=== PATIENT | male | born 1990 | race Caucasian/White ===

== ENCOUNTER 2016-06-23 12:02 | Emergency (ER) | payer OTHER ==
[~2016-06-23] VITALS: Ht 182.9 cm; Wt 114.9 kg
[2016-06-23] MEDS ORDERED: DULERA 100 MCG/13 GM IH (14:05)
[2016-06-23] MEDS ORDERED: FLEXERIL10 MG PO (15:12)
[2016-06-23] MEDS ORDERED: MOTRIN800 MG PO (15:12)
[2016-06-23 15:29] VITALS: BP 133/86
== END 2016-06-23 15:33 | disposition home or self-care (01) ==
LOC: EME 12:02
DX: S80.12XA Contusion of left lower leg, initial encounter (principal); W01.0XXA Fall on same level from slipping, tripping and stumbling without subsequent striking against object, initial encounter; Y92.89 Other specified places as the place of occurrence of the external cause; J45.909 Unspecified asthma, uncomplicated; F17.200 Nicotine dependence, unspecified, uncomplicated; Z88.0 Allergy status to penicillin; Z88.2 Allergy status to sulfonamides
CPT/HCPCS: 73552; 99281; 99284